=== PATIENT | male | born 1945 | race Caucasian/White ===

== ENCOUNTER 2016-07-05 08:40 | Emergency (ER) | payer OTHER ==
[~2016-07-05] VITALS: Wt 118.0 kg
[2016-07-05 09:13] LABS: ADD SCAN DIFF NO
[2016-07-05 09:19] LABS: ABNORMAL IP MESSAGE 1; HEMATOCRIT 39.6 % (42.0-52.0); HEMOGLOBIN 12.8 g/dl (14.0-18.0); MEAN CORPUSCULAR HEMOGLOBIN 29.7 pg (29.0-33.0); MEAN CORPUSCULAR HGB CONC 32.3 g/dl (32.0-37.0); MEAN CORPUSCULAR VOLUME 91.9 fl (82.0-101.0); MEAN PLATELET VOLUME 11.4 fl (7.4-10.4); PLATELET COUNT 46 10^3/UL (140-415); RED BLOOD COUNT 4.31 10^6/ul (4.70-6.10); RED CELL DISTRIBUTION WIDTH 15.7 % (11.5-14.5); WHITE BLOOD COUNT 5.1 10^3/ul (4.8-10.8)
[2016-07-05 09:27] LABS: CHLORIDE 97 mmol/L (97-110); SODIUM 141 mmol/L (135-144)
[2016-07-05 09:28] LABS: POTASSIUM 4.1 mmol/L (3.5-5.1)
--- NOTE | 2016-07-05 09:28 | RADRPT ---
PROCEDURE: XR Chest. CLINICAL INDICATION: Chest pain TECHNIQUE: A single portable view of the chest was obtained. COMPARISON: None FINDINGS: The right costophrenic angle is cut off. A left-sided hemodialysis catheter is seen with the tip in the SVC. A defibrillator device is seen with the tip in the right ventricle. The aorta is tortuou s and atherosclerotic. The cardiomediastinal silhouette is otherwise moderately enlarged. Mild diff use pulmonary vascular congestion is seen. No dense consolidation or discrete pleural effusion is se en. The soft tissues and osseous structures demonstrate benign age related senescent changes. IMPRESSION: 1. Moderate cardiomegaly. 2. Mild diffuse pulmonary vascular congestion. RPTAT: HPNM Physician Mk Date Time Electronically viewed and signed by Rogelio Roldan Physician on 07/05/2016 09:28 /
[2016-07-05 09:30] LABS: ANION GAP 22 (8-16); BLOOD UREA NITROGEN 49 mg/dl (7-20); CARBON DIOXIDE 26 mmol/L (21-31); CREATININE 3.98 mg/dl (0.61-1.24)
[2016-07-05 09:31] LABS: CALCIUM 8.8 mg/dl (8.4-10.2); GLUCOSE 176 mg/dl (70-220)
[2016-07-05 09:35] LABS: INR 1.33; PROTIME 16.6 Sec (12.2-14.2); PT RATIO 1.3
[2016-07-05 09:36] LABS: PARTIAL THROMBOPLASTIN TIME 59.6 Sec (25.0-35.0)
[2016-07-05 09:41] LABS: B-TYPE NATRIURETIC PEPTIDE 4750 PG/ML (0-125)
[2016-07-05 09:57] LABS: TROPONIN-I < 0.012 ng/ml (0.00-0.12)
[2016-07-05] MEDS ORDERED: hydrALAzine 20 MG INJ IV ONE (10:00)
[2016-07-05 10:21] LABS: ANISOCYTOSIS 1+; BASOPHIL # 0.1 10^3/ul (0.0-0.1); EOSINOPHILS # 0.1 10^3/ul (0.0-0.5); LYMPHOCYTES # 0.8 10^3/ul (0.8-2.9); MONOCYTE # 0.6 10^3/ul (0.3-0.9); NEUTROPHIL # 3.6 10^3/ul (1.6-7.5); POIKILOCYTOSIS 1+
--- NOTE | 2016-07-05 10:24 | ERA ---
ER Documentation Chief Complaint Date/Time DATE: 07/05/16 TIME: 10:21 Chief Complaint LOC FOR 30 SEC DURING DIALYSIS. BS 179, CPR FOR 20 SEC. PT A&0X4 ON ARRIVAL HPI This is a 70-year-old male who presents to the emergency room after being brought in by ambulance from his dialysis center for possible cardiac arrest. According to the dialysis nurses patient was in the middle of dialysis. They laid the patient flat, and the patient lost consciousness. They stated they did CPR for 20 seconds and the patient had return of spontaneous circulation. The patient states that he was undergoing dialysis, and did feel weak. He states that when they laid him back flat he started to feel mildly dizzy. The patient has no complaints at this time, no chest pain or shortness of breath no respiratory distress. ROS All systems reviewed and are negative except as per history of present illness. PMhx/Soc History of Surgery: Yes (AV SHUNT PLACEMENT ) Hx Cardiac Disorders: Yes (PACEMAKER ) Hx Miscellaneous Medical Probl: Yes (DIALYSIS ) Hx Alcohol Use: Yes Hx Substance Use: No Hx Tobacco Use: No Smoking Status: Never smoker Physical Exam Vitals Vital Signs Date Time Temp Pulse Resp B/P Pulse Ox O2 Delivery O2 Flow Rate FiO2 07/05/16 08:54 Nasal Cannula 2 07/05/16 08:45 97.9 78 20 158/105 98 Physical Exam INITIAL VITAL SIGNS: Reviewed by me GENERAL: The patient is well developed and appropriate for usual state of health in no apparent distress HEENT: Pupils equal, round, and reactive to light. EOMI. There is no scleral icterus. NECK: C-spine is soft and supple, there is no meningismus. There is no cervical lymphadenopathy. LUNGS: Clear to auscultation bilaterally. There are no rales, wheezes or rhonchi. HEART: Irregularly irregular rhythm, no murmurs, clicks, rubs or gallops. ABDOMEN: Soft, non-tender, non-distended. There are bowel sounds in all four quadrants. No rebound or guarding. EXTREMITIES: There is no peripheral cyanosis or edema. No focal swelling or erythema. NEUROLOGICAL: The patient moves all four extremities with 5/5 strength. Cranial nerves II - XII are intact. Normal gait. Alert and oriented SKIN: AICD in left chest wall, dialysis catheter left chest wall there is no apparent rash or petechiae. HEME/LYMPHATIC: There is no evidence of excessive bruising or lymphedema. PSYCHIATRIC: The patient does not appear anxious or depressed. Result Diagram: 07/05/16 0850 07/05/16 0850 Results 24 hrs Laboratory Tests Test 07/05/16 08:50 White Blood Count 5.110^3/ul Red Blood Count 4.3110^6/ul Hemoglobin 12.8g/dl Hematocrit 39.6% Mean Corpuscular Volume 91.9fl Mean Corpuscular Hemoglobin 29.7pg Mean Corpuscular Hemoglobin Concent 32.3g/dl Red Cell Distribution Width 15.7% Platelet Count 4610^3/UL Mean Platelet Volume 11.4fl Prothrombin Time 16.6Sec Prothrombin Time Ratio 1.3 INR International Normalized Ratio 1.33 Activated Partial Thromboplast Time 59.6Sec Sodium Level 141mmol/L Potassium Level 4.1mmol/L Chloride Level 97mmol/L Carbon Dioxide Level 26mmol/L Anion Gap 22 Blood Urea Nitrogen 49mg/dl Creatinine 3.98mg/dl Glucose Level 176mg/dl Calcium Level 8.8mg/dl Troponin I < 0.012ng/ml B-Type Natriuretic Peptide 4750PG/ML Current Medications Medications (Trade) Dose Ordered Sig/Zera Route PRN Reason Start Time Stop Time Status Last Admin Dose Admin Hydralazine HCl (Apresoline) 10 mg ONCE ONCE IV 07/05/16 10:00 07/05/16 10:01 DC Procedures/MDM Chest X-ray 1V Interpreted by me: Soft Tissue: No acute abnormalities Bones: No acute abnormalities Mediastinum/Cardiac Silhouette/Lungs: Pulmonary vascular congestion EKG: Rate/Rhythm: Atrial fibrillation QRS, ST, T-waves: [No changes consistent w/ acute ischemia] Impression: [No evidence of ischemia or arrhythmia] This 70-year-old male presents to the emergency room for evaluation of possible cardiac arrest. When I evaluated this patient I do not feel that he was in a cardiac arrest at all. The patient likely had too much fluid removed and was laid back quickly. The patient did feel dizzy prior to this happening. He is alert and oriented to person place and time. He has been hemodynamically stable here and was hypertensive. This patient had lab work drawn and x-ray. Troponin is negative, EKG shows atrial fibrillation. Patient has chronic atrial fibrillation. Given this patient's extensive cardiac history this patient will be transferred to [facility]. I have spoken to Dr. Lopez and he agrees to accept the patient over at [facility]. Case # [id number]. Departure Diagnosis: Primary Impression: Loss of consciousness Additional Impressions: Atrial fibrillation Normocytic anemia Thrombocytopenia Condition: Fair JESSICA HERNANDEZ DO Jul 05, 2016 10:24
[2016-07-05 10:26] LABS: OVALOCYTES FEW; PLATELET ESTIMATE PLT APPEAR DECREASED
[2016-07-05] MEDS ORDERED: APR50 PO (11:07)
[2016-07-05] MEDS ORDERED: CLOP75TA27 PO (11:07)
[2016-07-05] MEDS ORDERED: GLIP2.5T3 PO (11:08)
[2016-07-05] MEDS ORDERED: GABA100C14 PO (11:08)
[2016-07-05] MEDS ORDERED: CARV25TA79 PO (11:09)
[2016-07-05] MEDS ORDERED: LISI10TA2 PO (11:09)
[2016-07-05] MEDS ORDERED: MOME13HF INHALATION (11:10)
[2016-07-05] MEDS ORDERED: HYDR-906 PO (11:10)
[2016-07-05] MEDS ORDERED: CALC0.5C4 PO (11:13)
[2016-07-05 11:42] VITALS: BP 146/100; PULSE 74; RESP 20; TEMP 97.9
== END 2016-07-05 11:46 | disposition short-term general hospital (02) ==
LOC: E/R 08:40
DX: R40.4 Transient alteration of awareness (principal); I48.91 Unspecified atrial fibrillation; D64.9 Anemia, unspecified; D69.6 Thrombocytopenia, unspecified; Z95.0 Presence of cardiac pacemaker
CPT/HCPCS: 36415; 71010; 80048; 83880; 84484; 85025; 85610; 85730; 93005; 96374; 99285; J0360